=== PATIENT | female | born 1975 ===

== ENCOUNTER 2022-04-02 23:39 | Outpatient (CLI) | payer MEDICAID ==
[2022-04-03 03:10] LABS: Bilirubin,Urine NEG (Negative); Blood,Urine NEG (Negative); Color,Urine Yellow (Yellow); Urobilinogen,Urine < 2.0 mg/dL (<2.0)
[2022-04-03 04:09] LABS: Bacteria,Urine 4+ /HPF (Negative); Calcium Oxalate Crystals,Urine 2+; Mucus,Urine 3+ /HPF
[2022-04-03] MEDS ORDERED: LACTATED RINGERS 1,000 ML IV ONE (05:05)
[2022-04-03] MEDS ORDERED: ACETAMINOPHEN 500 MG TAB PO ONE (05:06)
[2022-04-03] MEDS ORDERED: guaiFENesin 200 MG TAB PO ONE (05:47)
[2022-04-03 07:09] VITALS: BP 115/66
== END 2022-04-03 08:02 | disposition home or self-care (01) ==
LOC: TRG 23:39 → APU 23:41 → TRG 04-03 08:02
PROVIDERS: ATTEND Obstetrics & Gynecology
DX: O62.9 Abnormality of forces of labor, unspecified (principal); O09.523 Supervision of elderly multigravida, third trimester; Z3A.35 35 weeks gestation of pregnancy
CPT/HCPCS: 59025; 81001; 87116; 87430; 87502; 96360; J7120

== ENCOUNTER 2022-04-21 16:36 | Inpatient (IN) | payer MEDICAID ==
[2022-04-21] MEDS ORDERED: LACTATED RINGERS 1,000 ML ONE (17:00)
[2022-04-21] MEDS ORDERED: MAGNESIUM SULFATE 40GM/1000ML 40 GM/1,000 ML BAG IV ONE (17:09)
[2022-04-21] MEDS ORDERED: MAGNESIUM SULFATE 4 GM/100 ML BAG IV ONE ×3 (17:09→21:00)
[2022-04-21] MEDS ORDERED: hydrALAZINE 20 MG/1 ML INJ ONE (17:12)
[2022-04-21] MEDS ORDERED: LORazepam 2 MG/ML VIAL ONE (17:20)
[2022-04-21] MEDS ORDERED: propofoL 200 MG/20 ML VIAL IV ONE (17:20)
[2022-04-21] MEDS ORDERED: SODIUM CHLORIDE 0.9% 500 ML 500 ML IV SCH (17:20)
[2022-04-21] MEDS ORDERED: SUCCINYLCHOLINE CHLORIDE 200 MG/10 ML INJ MDV ONE (17:20)
[2022-04-21] MEDS ORDERED: LORazepam 2 MG/ML VIAL IV ONE (17:23)
[2022-04-21] MEDS ORDERED: METOCLOPRAMIDE 10 MG/2 ML INJ IV ONE (17:25)
[2022-04-21] MEDS ORDERED: FAMOTIDINE 20 MG/2 ML INJ IV ONE (17:25)
[2022-04-21] MEDS ORDERED: fentaNYL 100 MCG/2 ML INJ ONE ×2 (17:25→19:15)
[2022-04-21] MEDS ORDERED: ceFAZolin/Water 2 GM/20 ML 2 GM/20 ML SYRINGE IV ONE (17:28)
[2022-04-21] MEDS ORDERED: LACTATED RINGERS 1,000 ML IV SCH ×3 (17:30→20:30)
[2022-04-21] MEDS ORDERED: GENTAMICIN 120 MG in SODIUM CHLORIDE 0.9% 100 ML IV ONE (17:35)
[2022-04-21] MEDS ORDERED: GENTAMICIN/NS 80 MG/100 ML 100 ML IV ONE ×2 (17:39→19:00)
[2022-04-21] MEDS ORDERED: WATER FOR IRRIG STERILE 1,500 ML BOTTLE IR ONE (17:40)
[2022-04-21] MEDS ORDERED: SODIUM CHLORIDE 0.9% IRR 1,500 ML BOTTLE IR ONE (17:40)
--- NOTE | 2022-04-21 17:44 | Anesthesia Consultation ---
Anesthesia Consult and Med Hx Date of service: 04/21/22 - Airway Anesthetic Teeth Evaluation: Good ROM Head & Neck: Adequate Mental/Hyoid Distance: Adequate Mallampati Class: Class III Intubation Access Assessment: Possibly Difficult - Pre-Operative Health Status ASA Pre-Surgery Classification: ASA3, Emergency Proposed Anesthetic Plan: General - Cardiovascular System Hx Hypertension: Yes (pre-e) - Additional Comments Anesthesia Medical History Comments: Per RN report, PMH ~36w IUP presenting with abdominal pain and HTN. She was started on treatment for pre-eclampsia then became unresponsive with questionable seizure activity. Code met was called. On my arrival, patient was initially unresponsive, SBP 180s, HR 60s, SpO2 100% on NRB and FHTs 130s. She was given hydralazine and ativan IV per OB order and regained consciousness. Bedside US did not show abruption. Patient now scheduled for STAT . Labs drawn on admission are pending. pRBCs ordered. Plan for GETA/RSI. No written anesthesia consent was obtained given emergent circumstances however OB did explain to patient in her primary language Micronesian that she would be put to sleep for her .
--- NOTE | 2022-04-21 17:44 | Anesthesia Day of Surgery ---
Anesthesia Day of Surgery - Day of Surgery Patient Examined: Yes Patient H&P Reviewed: Yes Patient is NPO: No (unknown; will be RSI/GETA)
[2022-04-21] MEDS ORDERED: GENTAMICIN/NS 120MG/100ML 120 MG/100 ML BAG IV ONE (17:45)
[2022-04-21 17:46] LABS: Basophils % (Auto) 0.5 % (0.0-1.8); Eosinophils # (Auto) 0.2 K/mm3 (0.0-0.4); Eosinophils % (Auto) 1.9 % (0.0-4.3); Hematocrit 43.8 % (30.3-42.9); Hemoglobin 15.1 gm/dl (10.1-14.3); Lymphocytes # (Auto) 3.2 K/mm3 (1.2-5.4); Lymphocytes % (Auto) 31.7 % (13.4-35.0); Mean Corpuscular HGB Conc 34 % (30-34); Mean Corpuscular Volume 92 fl (79-97); Monocytes # (Auto) 0.9 K/mm3 (0.0-0.8); Monocytes % (Auto) 8.5 % (0.0-7.3); Platelet Count 173 K/mm3 (140-440); Red Blood Count 4.76 M/mm3 (3.65-5.03); Red Cell Distribution Width 13.8 % (13.2-15.2)
--- NOTE | 2022-04-21 17:49 | Ultrasound Report ---
US OB limited INDICATION: PT BECAME UNRESPONSIVE; STAT U/S FOR PLACENTAL ABRUPTION. COMPARISON: None available. FINDINGS: Limited OB ultrasound shows single gestation in the cephalic position with heart rate of 127 bp m. Placenta is anterior and right lateral. There is no lifting or separation of the placenta. Signer Name: Carlyle Chávez MD Signed: 04/21/2022 5:44 PM Workstation Name: [id number]
[2022-04-21 18:00] LABS: Alanine Aminotransferase 113 units/L (7-56); Albumin 3.5 g/dL (3.9-5); BUN/Creatinine Ratio 19; Blood Urea Nitrogen 15 mg/dL (7-17); Calcium 9.3 mg/dL (8.4-10.2); Hemolysis Index 7
[2022-04-21] MEDS ORDERED: OXYTOCIN DRIP 30 UNITS/500 ML BAG IV SCH ×3 (18:00→21:00)
[2022-04-21] MEDS ORDERED: BICITRA ORAL LIQD 30ML PO ONE (18:00)
[2022-04-21] MEDS ORDERED: ceFAZolin/Water 2 GM/20 ML 2 GM/20 ML SYRINGE IV SCH (18:00)
[2022-04-21 18:01] LABS: Alanine Aminotransferase 114 units/L (7-56)
[2022-04-21] MEDS ORDERED: OXYTOCIN 10 UNIT/1 ML INJ ONE ×2 (18:07→18:08)
[2022-04-21 18:13] LABS: Bilirubin,Urine NEG (Negative); Blood,Urine SM (Negative); Color,Urine Yellow (Yellow); Urobilinogen,Urine < 2.0 mg/dL (<2.0)
[2022-04-21 18:20] LABS: Bacteria,Urine 2+ /HPF (Negative); Hyaline Casts,Urine 2 /LPF; Mucus,Urine FEW /HPF
[2022-04-21] MEDS ORDERED: ROCURONIUM 50 MG/5 ML INJ IV ONE (18:21)
[2022-04-21 18:24] LABS: Protein,Urine >500 mg/dL (Negative)
[2022-04-21] MEDS ORDERED: GLYCOPYRROLATE 0.4 MG/2 ML INJ ONE (18:29)
[2022-04-21] MEDS ORDERED: NEOSTIGMINE 10MG/10 ML INJ MDV ONE (18:29)
[2022-04-21 18:36] LABS: INR 0.77 (0.87-1.13)
[2022-04-21 18:37] LABS: Partial Thromboplastin Time 24.1 Sec. (24.2-36.6)
[2022-04-21] MEDS ORDERED: TERBUTALINE 1 MG/1 ML INJ SUB-Q PRN (18:49)
[2022-04-21] MEDS ORDERED: CARBOPROST TROMETHAMINE 250 MCG/1 ML INJ IM PRN (18:49)
[2022-04-21] MEDS ORDERED: LOPERAMIDE 2 MG CAP PO PRN (18:49)
[2022-04-21] MEDS ORDERED: miSOPROStol 200 MCG TAB PR PRN (18:49)
[2022-04-21] MEDS ORDERED: BUTORPHANOL 2 MG/1 ML INJ IV PRN (18:49)
[2022-04-21] MEDS ORDERED: OXYTOCIN 10 UNIT/1 ML INJ IM PRN (18:49)
[2022-04-21] MEDS ORDERED: METHYLERGONOVINE MALEATE 0.2 MG/ML VIAL IM PRN (18:49)
[2022-04-21] MEDS ORDERED: ePHEDrine SULFATE 50 MG/1 ML INJ IV PRN (18:49)
[2022-04-21] MEDS ORDERED: NalbUPHINE 10 MG/1 ML INJ IV PRN (18:49)
[2022-04-21] MEDS ORDERED: MINERAL OIL 30 ML ORAL LIQD PO PRN (18:49)
[2022-04-21] MEDS ORDERED: fentaNYL 100 MCG/2 ML INJ IV PRN (18:49)
[2022-04-21] MEDS ORDERED: SUGAMMADEX SODIUM 200 MG/2 ML VIAL IV ONE (18:59)
[2022-04-21] MEDS ORDERED: HYDROmorphone 1 MG/1 ML INJ IV PRN (19:22)
[2022-04-21] MEDS ORDERED: PROMETHAZINE 25 MG RECT SUPP PR PRN (19:22)
[2022-04-21] MEDS ORDERED: NALOXONE 0.4 MG/1 ML INJ IV PRN ×2 (19:22→20:30)
[2022-04-21] MEDS ORDERED: PROMETHAZINE 25 MG TAB PO PRN (19:22)
[2022-04-21] MEDS ORDERED: ONDANSETRON 4 MG/2 ML INJ IV PRN (19:22)
[2022-04-21] MEDS ORDERED: MORPHINE 4 MG/1 ML INJ IV PRN (19:22)
[2022-04-21] MEDS: MAGNESIUM SULFATE 40GM/1000ML 40 GM/1,000 ML BAG IV SCH (19:39)
[2022-04-21] MEDS: HYDROmorphone 1 MG/1 ML INJ IV PRN ×4 (19:42→22:41)
[2022-04-21] MEDS ORDERED: LIDOCAINE (2%) 20 MG/1 ML VIAL 20 ML MDV INFILTRATI ONE (19:49)
[2022-04-21] MEDS ORDERED: fentaNYL-BUPIV 2 MCG/ML-0.125% 200 MCG/100 ML BAG EPIDURAL SCH (20:00)
--- NOTE | 2022-04-21 20:06 | History and Physical Report ---
History of Present Illness Date of examination: 04/21/22 Date of admission: 04/21/22 18:52 Chief complaint: "She just had a seizure" History of present illness: Late entry. Pt is a 46 year old female VANESSA 05/15/22 at 36w4d who presents by EMS saying she was not feeling well. She presented to [facility] clinic today with elevated blood pressure and headache today. She was instructed to present to labor and delivery for induction. However, she presented by EMS with restlessness. During her evaluation she was noted to have a seizure while she was in triage. She was placed on magnesium sulfate, and given IV hydralazine and Ativan 1 mg. She has had care at [facility] complicated by advanced maternal age, IVF with donor egg, migraines, right wrist pain, anterior placenta with lakes, grandmultiparity, h/o hemorrhage, hypothyroidism on Synthroid 50 mcg daily. Her GBS status is unknown as the study was pending this week. 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, IVF ) Family/Genetic History: hypertension, cancer (skin cancer ) - Obstetrical History Expected Date of Delivery: 05/15/22 Actual Gestation: 36 Week(s) 4 Day(s) : 6 Para: 5 Hx # Term Pregnancies: 5 Number of Pregnancies: 0 Spontaneous Abortions: 0 Induced : 0 Number of Living Children: 4 Medications and Allergies Allergies Allergy/AdvReac Type Severity Reaction Status Date / Time Penicillins Allergy Unknown Verified 04/03/22 05:08 Active Meds: Active Medications Acetaminophen (Acetaminophen 325 Mg Tab) 650 mg PO Q4H PRN PRN Reason: Pain, Mild (1-3) Carboprost Tromethamine (Carboprost Tromethamine 250 Mcg/1 Ml Inj) 250 mcg IM ONCE PRN PRN Reason: Uterine Bleeding Ephedrine Sulfate (Ephedrine Sulfate 50 Mg/1 Ml Inj) 10 mg IV Q2M PRN PRN Reason: Hypotension Hydralazine HCl (Hydralazine 20 Mg/1 Ml Inj) 5 mg IV Q30MIN PRN PRN Reason: Blood Pressure Hydromorphone HCl (Hydromorphone 1 Mg/1 Ml Inj) 0.5 mg IV Q5M PRN PRN Reason: BREAK Stop: 04/22/22 19:21 Last Admin: 04/21/22 19:42 Dose: 0.5 mg Hydromorphone HCl (Hydromorphone 1 Mg/1 Ml Inj) 0.5 mg IV Q4H PRN PRN Reason: breakthrough pain > 7/10 Sodium Chloride (Nacl 0.9% 500 Ml) 500 mls @ 0 mls/hr IV ONCE IRIS Lactated Ringer's (Lactated Ringers) 1,000 mls @ 2,250 mls/hr IV PREOP IRIS Stop: 04/22/22 17:57 Oxytocin/Sodium Chloride (Pitocin/Ns 30 Unit/500ml) 30 units in 500 mls @ 0 mls/hr IV TITR IRIS; Protocol Clindamycin HCl (Cleocin 900 Mg/50 Ml) 900 mg in 50 mls @ 100 mls/hr IV PREOP IRIS; Protocol Last Admin: 04/21/22 17:47 Dose: 100 mls/hr Magnesium Sulfate (Magnesium Sulfate 4gm/100ml) 4 gm in 100 mls @ 25 mls/hr IV ONCE ONE Stop: 04/21/22 22:59 Last Admin: 04/21/22 17:13 Dose: 25 mls/hr Magnesium Sulfate (Magnesium Sulfate 40gm/1000ml) 40 gm in 1,000 mls @ 50 mls/hr IV DIRECT IRIS Last Admin: 04/21/22 19:39 Dose: 2 gm/hr, 50 mls/hr Oxytocin/Sodium Chloride (Pitocin/Ns 30 Unit/500ml) 30 units in 500 mls @ 2 mls/hr IV TITR IRIS; Protocol Lactated Ringer's (Lactated Ringers) 1,000 mls @ 125 mls/hr IV DIRECT IRIS Fentanyl/Bupivacaine/Sodium Chlor (Fentanyl-Bupiv 2 Mcg/Ml-0.125%) 200 mcg in 100 mls @ 8 mls/hr EPIDURAL TITRATE IRIS; Protocol Lidocaine (Lidocaine (2%) 20 Mg/1 Ml Vial 20 Ml Mdv) 20 ml INFILTRATI ONCE ONE Stop: 04/21/22 19:50 Loperamide HCl (Loperamide 2 Mg Cap) 2 mg PO ONCE PRN PRN Reason: give with Hemabate Methylergonovine Maleate (Methylergonovine Maleate 0.2 Mg/Ml Vial) 0.2 mg IM ON CE PRN PRN Reason: Uterine Bleeding Mineral Oil (Mineral Oil 30 Ml Oral Liqd) 30 ml PO QHS PRN PRN Reason: Constipation Misoprostol (Misoprostol 200 Mcg Tab) 800 mcg NH ONCE PRN PRN Reason: Uterine Bleeding Morphine Sulfate (Morphine 4 Mg/1 Ml Inj) 2.5 mg IV Q15M PRN PRN Reason: BREAK Stop: 04/22/22 19:21 Naloxone HCl (Naloxone 0.4 Mg/1 Ml Inj) 0.2 mg IV Q2MIN PRN PRN Reason: Res Rate </= 8 or 02 SAT < 92% Ondansetron HCl (Ondansetron 4 Mg/2 Ml Inj) 4 mg IV Q8H PRN PRN Reason: Nausea And Vomiting Oxytocin (Oxytocin 10 Unit/1 Ml Inj) 10 unit IM ONCE PRN PRN Reason: Uterine Bleeding Promethazine HCl (Promethazine 25 Mg Tab) 25 mg PO Q6H PRN PRN Reason: Nausea And Vomiting Promethazine HCl (Promethazine 25 Mg Rect Supp) 25 mg NH Q6H PRN PRN Reason: Nausea And Vomiting Sodium Chloride (Sodium Chloride 0.9% 10 Ml Flush Syringe) 10 ml IV PRN NR Terbutaline Sulfate (Terbutaline 1 Mg/1 Ml Inj) 0.25 mg SUB-Q ONCE PRN PRN Reason: Hyperstimulation/Hypertonicity Review of Systems All systems: negative - Vital Signs Vital signs: Vital Signs Pulse BP Pulse Ox 68 137/98 79 L 04/21/22 17:01 04/21/22 17:01 04/21/22 17:01 Temp Pulse Resp BP Pulse Ox 82 163/78 98 04/21/22 17:35 04/21/22 17:35 04/21/22 17:31 - Physical Exam Breasts: Positive: deferred Abdomen: Positive: soft (obese, gravid ) Uterus: Positive: enlarged (gravid ) Extremities: Positive: normal - Obstetrical FHR: auscultation normal Uterine Contraction Monitor Mode: External Cervical Dilatation: 1 Uterine Contraction Pattern: Absent Uterine Tone Measurement Phase: Resting Results Result Diagrams: 04/21/22 Unknown 04/21/22 Unknown Abnormal lab results 04/21/22 04/21/22 04/21/22 Range/Units 17:36 Unknown Unknown Hgb 15.1 H (10.1-14.3) gm/dl Hct 43.8 H (30.3-42.9) % Hall % (Auto) 8.5 H (0.0-7.3) % Hall # (Auto) 0.9 H (0.0-0.8) K/mm3 PT (12.2-14.9) Sec. INR (0.87-1.13) APTT (24.2-36.6) Sec. AST 132 H (5-40) units/L ALT 114 H (7-56) units/L Alkaline Phosphatase (35-129) units/L Lactate Dehydrogenase 368 H (91-180) units/L Total Protein (6.3-8.2) g/dL Albumin (3.9-5) g/dL Urine WBC (Auto) 18.0 H (0.0-6.0) /HPF Crossmatch 04/21/22 04/21/22 04/21/22 Range/Units Unknown Unknown Unknown Hgb (10.1-14.3) gm/dl Hct (30.3-42.9) % Hall % (Auto) (0.0-7.3) % Hall # (Auto) (0.0-0.8) K/mm3 PT 11.6 L (12.2-14.9) Sec. INR 0.77 L (0.87-1.13) APTT 24.1 L (24.2-36.6) Sec. AST 127 H (5-40) units/L ALT 113 H (7-56) units/L Alkaline Phosphatase 153 H (35-129) units/L Lactate Dehydrogenase (91-180) units/L Total Protein 6.0 L (6.3-8.2) g/dL Albumin 3.5 L (3.9-5) g/dL Urine WBC (Auto) (0.0-6.0) /HPF Crossmatch See Detail All other labs normal. Assessment and Plan A: IUP at 36w4d Eclampsia Advanced Maternal Age IVF with donor egg Migraines Anterior placenta with lakes Grandmultiparity h/o hemorrhage Hypothyroidism on Synthroid 50 mcg daily. GBS status pending P: Proceed with emergent section Anesthesia and NICU aware
--- NOTE | 2022-04-21 20:13 | Procedure Note ---
OB Delivery Note - Delivery Date of Delivery: 04/21/22 Surgeon: BRANDON VIRGEN Estimated blood loss: other (827 mL) - Section Preop diagnosis: other (Eclampsia ) Postop diagnosis: same section procedure: section, primary low transverse Disposition: PACU Narrative: Please see operative report - Infant A at 1 minute: 7 at 5 minutes: 8 Infant Gender: Male (2270g (5lb 0oz) @ 1758 pm)
[2022-04-21] MEDS: hydrALAZINE 20 MG/1 ML INJ IV PRN ×2 (20:26→20:57)
[2022-04-21] MEDS ORDERED: LANOLIN/ZINC/DIMETHICONE (LANSINOH) 7 GM TP PRN (20:30)
[2022-04-21] MEDS ORDERED: WITCH HAZEL/ GLYCERIN PAD TP PRN (20:30)
--- NOTE | 2022-04-21 20:30 | Operative Report ---
Operative Report Operative Report: Date of procedure: April 21, 2022 Preoperative diagnosis: 1) IUP at 36w4d 2) Eclampsia 3) Advanced Maternal Age 4) Obesity 5) IVF Postoperative diagnosis: Same Procedure: Primary low transverse section Surgeon: Mariam Ibarra M.D. Assist: Lita Lord M.D. Anesthesia: GETA Findings: 1) Viable male , Apgars 7 and 8, weight 2270 g, (5 lb 0 oz) in cephalic presentation. Nuchal cord x 2 2) Normal-appearing uterus ovaries and tubes Estimated blood loss: 827 mL IV fluids: 1400 mL Urine output: 450 mL, clear at the end of the procedure Drains: Valle to gravity Specimens: Placenta to pathology Complications:None. Counts correct x 3 Disposition: Stable to PACU Indication for procedure: Pt is a 46 year old at 36w4d presents with suspected seizure activity and elevated blood pressures consistent with eclampsia. The decision was made to proceed to section. Operation in detail: After the risks, benefits, alternatives and complications were explained to the patient she gave informed consent for the procedure. She was subsequently taken to the operating room where regional anesthesia was noted to be adequate. She was placed in the dorsal supine position with leftward tilt and prepped and draped in a normal sterile fashion. heart tones were noted prior to incision. A timeout was performed. A Pfannenstiel skin incision was made with the knife and carried down to the layer of the fascia with the Bovie. The fascia was incised in the midline and the fascial incision was extended bilaterally with the knife. The fascial incision was then stretched. The rectus muscles were then in the midline . The peritoneum was then entered bluntly. The peritoneal incision was extended with good visualization of the bladder. The peritoneal incision was then stretched. The bladder blade was then placed. The vesicouterine peritoneum was grasped with smooth pick ups and incised with Metzenbaum scissors. A bladder flap was then created digitally and the bladder blade was replaced. A transverse incision was made in the lower uterine segment with a knife and extended bilaterally with the bandage scissors. Amniotomy was performed with egress of clear fluid. head delivered with ease, nuchal cord x 2 was reduced, followed by delivery of the shoulders and body. bulb suctioned at delivery. Cord clamped and cut. handed to NICU staff in attendance. Cord blood was collected. The placenta was then delivered m anually. The uterus was then exteriorized and cleared of all clots and debris. The hysterotomy was then reapproximated with 0 Monocryl in a running locked fashion. A second layer of the same suture was used in imbricating fashion. The hysterotomy was inspected and hemostasis was noted. The gutters were irrigated and cleared of all clots and debris. The uterus was placed back into the jodie toneal cavity. The hysterotomy was again inspected and noted to be hemostatic. Surgicel was placed over the hysterotomy. The peritoneum was reapproximated with 0 Monocryl in a running fashion incorporating the rectus muscles. Surgicel was placed over the rectus muscles. The fascia was reapproximated with 0 Vicryl in a running fashion. The subcutaneous tissue was reapproximated with 3-0 Vicryl in a running fashion. The skin was reapproximated with danyel. The incision was then covered with steri strips and a pressure dressing. The procedure was then ended. The patient tolerated the procedure well and was taken to the PACU in stable condition. All instrument, lap, and needle counts were correct 3.
[2022-04-21] MEDS ORDERED: hydrALAZINE 20 MG/1 ML INJ IV ONE (21:05)
[2022-04-21] MEDS ORDERED: HYDROmorphone 0.5 MG/0.5 ML INJ ONE ×2 (21:22→22:40)
[2022-04-21] MEDS ORDERED: D5W/LACTATED RINGERS 1,000 ML IV SCH (22:00)
[2022-04-21] MEDS ORDERED: MAGNESIUM SULFATE 40GM/1000ML 40 GM/1,000 ML BAG IV SCH (22:00)
[2022-04-21] MEDS: NIFEdipine XL 30 MG TAB PO SCH (22:35)
[2022-04-21 23:35] LABS: Hematocrit 41.9 % (30.3-42.9); Hemoglobin 13.8 gm/dl (10.1-14.3); Mean Corpuscular HGB Conc 33 % (30-34); Mean Corpuscular Volume 93 fl (79-97); Platelet Count 141 K/mm3 (140-440); Red Blood Count 4.52 M/mm3 (3.65-5.03)
[2022-04-21 23:41] LABS: INR 0.83 (0.87-1.13)
[2022-04-21 23:42] LABS: Partial Thromboplastin Time 25.8 Sec. (24.2-36.6)
[2022-04-21 23:44] LABS: Alanine Aminotransferase 177 units/L (7-56)
[2022-04-22] MEDS: oxyCODONE /ACETAMINOPHEN 5-325MG TAB PO PRN (00:43)
[2022-04-22 01:44] LABS: Uric Acid 7.4 mg/dL (3.5-7.6)
[2022-04-22] MEDS: CLINDAMYCIN 600 MG/50 mL 600 MG/50 ML BAG IV SCH ×2 (02:44→10:35)
[2022-04-22] MEDS: hydrALAZINE 20 MG/1 ML INJ IV PRN (05:38)
[2022-04-22] MEDS ORDERED: TETANUS,DIPH,PERTUSS(ACELL) VACCINE 0.5 ML SYRINGE IM ONE (06:00)
[2022-04-22] MEDS: HYDROmorphone 1 MG/1 ML INJ IV PRN ×2 (06:24→08:51)
[2022-04-22] MEDS ORDERED: KETOROLAC 30 MG/1 ML INJ IV SCH (07:30)
--- NOTE | 2022-04-22 08:01 | Progress Note ---
Assessment and Plan A: POD#1 s/p primary section at 36 wks Eclampsia on magnesium sulfate for seizure prophylaxis, Procardia XL 30 mg BID Advanced Maternal Age IVF with donor egg Migraines Anterior placenta with lakes Grandmultiparity h/o hemorrhage Hypothyroidism on Synthroid 50 mcg daily. GBS status pending P: Continue magnesium sulfate for at least 24 hours Titrate antihypertensives Optimize pain regimen Closely monitor status Subjective - Subjective Date of service: 04/22/22 Principal diagnosis: Eclampsia, s/p primary under general anesthesia Interval history: Pt required multiple pushes of hydralazine. Patient reports: appetite normal, pain poorly controlled, no voiding normally (jane in place ), no flatus, no bowel movement : in NICU Objective - Vital Signs Latest vital signs: Vital Signs Temp Pulse Resp BP BP Pulse Ox Pulse Ox 04/22/22 07:59 95 H 141/65 93 04/22/22 07:56 103 H 96 04/22/22 07:51 107 H 97 04/22/22 07:50 101 H 94 04/22/22 07:46 102 H 96 04/22/22 07:44 100 H 144/60 92 04/22/22 07:41 103 H 96 04/22/22 07:40 96 04/22/22 07:36 97.8 F 100 H 20 95 04/22/22 07:31 101 H 96 04/22/22 07:29 100 H 155/71 94 04/22/22 07:26 102 H 97 04/22/22 07:21 105 H 97 04/22/22 07:16 104 H 96 04/22/22 07:14 99 H 154/70 04/22/22 07:11 102 H 96 04/22/22 07:06 103 H 97 04/22/22 07:01 101 H 96 04/22/22 06:59 99 H 149/69 94 04/22/22 06:56 103 H 97 04/22/22 06:51 103 H 96 04/22/22 06:46 105 H 96 04/22/22 06:44 103 H 148/68 04/22/22 06:41 104 H 94 04/22/22 06:39 105 H 94 04/22/22 06:36 104 H 94 04/22/22 06:31 106 H 94 06/23/22 06:29 100 H 157/72 94 04/22/22 06:26 101 H 96 06 06:21 100 H 95 04/22/22 06:16 103 H 95 04/22/22 06:14 102 H 156/73 93 04/22/22 06:11 101 H 96 06 06:06 98 H 96 04/22/22 06:01 102 H 96 04/22/22 05:59 103 H 153/72 94 04/22/22 05:56 101 H 96 04/22/22 05:51 97 H 97 04/22/22 05:46 99 H 97 04/22/22 05:44 96 H 157/74 04/22/22 05:41 99 H 98 04/22/22 05:36 99 H 97 04/22/22 05:31 99 H 97 04/22/22 05:26 101 H 97 04/22/22 05:24 99 H 186/79 04/22/22 05:21 100 H 98 04/22/22 05:16 98 H 97 04/22/22 05:11 98 H 97 04/22/22 05:06 100 H 96 04/22/22 05:04 97 H 175/82 04/22/22 05:03 100 H 94 04/22/22 05:01 102 H 96 04/22/22 04:56 102 H 97 04/22/22 04:51 102 H 97 04/22/22 04:46 103 H 96 04/22/22 04:44 100 H 167/74 04/22/22 04:43 102 H 94 04/22/22 04:41 103 H 96 04/22/22 04:36 103 H 96 04/22/22 04:31 100 H 97 04/22/22 04:26 102 H 97 04/22/22 04:24 102 H 165/72 04/22/22 04:23 103 H 94 04/22/22 04:21 103 H 97 04/22/22 04:16 104 H 97 04/22/22 04:11 105 H 97 04/22/22 04:06 106 H 96 04/22/22 04:03 102 H 141/65 92 04/22/22 04:01 103 H 97 04/22/22 03:56 105 H 97 04/22/22 03:51 103 H 96 04/22/22 03:46 104 H 96 06 03:43 103 H 140/65 93 06 03:41 105 H 96 04/22/22 03:36 104 H 96 04/22/22 03:31 105 H 96 04/22/22 03:26 106 H 96 04/22/22 03:23 102 H 149/68 92 04/22/22 03:21 105 H 96 04/22/22 03:16 106 H 97 04/22/22 03:11 105 H 96 04/22/22 03:06 104 H 97 04/22/22 03:03 100 H 150/70 93 04/22/22 03:01 105 H 97 04/22/22 02:56 106 H 97 04/22/22 02:51 102 H 97 04/22/22 02:46 105 H 97 04/22/22 02:43 104 H 143/70 93 04/22/22 02:41 111 H 97 04/22/22 02:36 102 H 97 04/22/22 02:31 104 H 96 04/22/22 02:26 109 H 96 04/22/22 02:23 103 H 143/67 93 04/22/22 02:21 104 H 96 04/22/22 02:16 106 H 96 04/22/22 02:11 102 H 96 04/22/22 02:06 105 H 96 04/22/22 02:03 105 H 142/65 92 04/22/22 02:01 104 H 96 04/22/22 01:56 111 H 97 04/22/22 01:51 107 H 96 04/22/22 01:46 108 H 96 04/22/22 01:43 102 H 147/69 92 04/22/22 01:41 108 H 96 04/22/22 01:36 108 H 96 04/22/22 01:31 103 H 97 04/22/22 01:26 105 H 97 04/22/22 01:23 101 H 144/67 94 04/22/22 01:21 103 H 97 04/22/22 01:16 101 H 97 04/22/22 01:11 102 H 98 04/22/22 01:06 104 H 98 04/22/22 01:02 98 H 154/67 04/22/22 01:01 102 H 97 04/22/22 00:56 104 H 97 04/22/22 00:52 99 H 161/71 04/22/22 00:51 101 H 97 04/22/22 00:46 105 H 98 04/22/22 00:42 98 H 163/71 94 04/22/22 00:41 104 H 97 04/22/22 00:36 101 H 97 04/22/22 00:33 98 H 161/71 04/22/22 00:31 102 H 97 04/22/22 00:26 107 H 98 04/22/22 00:22 103 H 148/65 04/22/22 00:21 105 H 97 04/22/22 00:16 103 H 97 04/22/22 00:12 103 H 158/68 04/22/22 00:11 103 H 97 04/22/22 00:06 103 H 96 04/22/22 00:02 103 H 159/71 04/22/22 00:01 105 H 98 04/21/22 23:56 109 H 97 04/21/22 23:52 106 H 157/71 04/21/22 23:51 107 H 96 04/21/22 23:46 109 H 97 04/21/22 23:42 108 H 160/72 04/21/22 23:41 107 H 97 04/21/22 23:36 113 H 97 04/21/22 23:32 115 H 161/73 04/21/22 23:31 116 H 97 04/21/22 23:26 114 H 97 04/21/22 23:22 116 H 155/72 04/21/22 23:21 115 H 97 04/21/22 23:16 117 H 96 04/21/22 23:12 115 H 157/72 04/21/22 23:11 119 H 97 04/21/22 23:06 119 H 97 04/21/22 23:02 114 H 145/69 94 04/21/22 23:01 112 H 97 04/21/22 22:56 118 H 95 04/21/22 22:51 113 H 96 04/21/22 22:46 111 H 96 04/21/22 22:42 115 H 152/70 04/21/22 22:41 117 H 97 04/21/22 22:36 114 H 97 04/21/22 22:32 115 H 157/72 04/21/22 22:31 114 H 97 04/21/22 22:26 114 H 97 04/21/22 21:28 157/85 04/21/22 20:50 97.5 F L 04/21/22 20:25 97 H 16 170/95 100 04/21/22 20:10 97.5 F L 04/21/22 20:05 97 H 18 164/86 100 04/21/22 19:50 99 H 17 149/81 04/21/22 19:45 100 H 17 152/82 04/21/22 19:40 99 H 18 134/83 04/21/22 19:35 101 H 18 135/77 04/21/22 19:30 104 H 18 140/75 04/21/22 19:18 95.9 F L 04/21/22 17:35 82 163/78 04/21/22 17:32 90 168/81 04/21/22 17:31 88 98 04/21/22 17:29 78 159/74 04/21/22 17:26 76 157/73 100 04/21/22 17:21 72 100 04/21/22 17:19 71 185/86 04/21/22 17:18 66 192/91 04/21/22 17:16 67 99 04/21/22 17:14 63 175/87 04/21/22 17:11 64 153/108 100 04/21/22 17:06 63 100 04/21/22 17:01 67 137/98 98 Intake and Output 04/21/22 04/22/22 04/22/22 22:59 06:59 14:59 Intake Total 1500 Output Total 1150 1000 350 Balance 350 -1000 -350 Intake: IV 1500 Output: Urine 1150 1000 350 Indwelling Catheter 700 1000 350 Other: Total, Output Amount 700 1000 350 # Voids Indwelling Catheter 1 1 Weight 99.79 kg Estimated Blood Loss 827 - Exam Breasts: Present: deferred Abdomen: Present: soft, distention (moderate, obese ) Extremities: Present: edema (1+) Incision: Present: dressed - Labs Labs: Abnormal lab results 04/21/22 04/21/22 04/21/22 Range/Units 17:36 22:30 22:30 WBC 12.6 H (4.5-11.0) K/mm3 Hgb (10.1-14.3) gm/dl Hct (30.3-42.9) % Garza % (Auto) (0.0-7.3) % Garza # (Auto) (0.0-0.8) K/mm3 PT (12.2-14.9) Sec. INR (0.87-1.13) APTT (24.2-36.6) Sec. Magnesium (1.7-2.3) mg/dL AST 281 H (5-40) units/L ALT 177 H (7-56) units/L Alkaline Phosphatase (35-129) units/L Lactate Dehydrogenase 458 H (91-180) units/L Total Protein (6.3-8.2) g/dL Albumin (3.9-5) g/dL Urine WBC (Auto) 18.0 H (0.0-6.0) /HPF Crossmatch 04/21/22 04/21/22 04/21/22 Range/Units 22:30 22:30 Unknown WBC (4.5-11.0) K/mm3 Hgb 15.1 H (10.1-14.3) gm/dl Hct 43.8 H (30.3-42.9) % Garza % (Auto) 8.5 H (0.0-7.3) % Garza # (Auto) 0.9 H (0.0-0.8) K/mm3 PT (12.2-14.9) Sec. INR 0.83 L (0.87-1.13) APTT (24.2-36.6) Sec. Magnesium 5.60 H (1.7-2.3) mg/dL AST (5-40) units/L ALT (7-56) units/L Alkaline Phosphatase (35-129) units/L Lactate Dehydrogenase (91-180) units/L Total Protein (6.3-8.2) g/dL Albumin (3.9-5) g/dL Urine WBC (Auto) (0.0-6.0) /HPF Crossmatch 04/21/22 04/21/22 04/21/22 Range/Units Unknown Unknown Unknown WBC (4.5-11.0) K/mm3 Hgb (10.1-14.3) gm/dl Hct (30.3-42.9) % Garza % (Auto) (0.0-7.3) % Garza # (Auto) (0.0-0.8) K/mm3 PT 11.6 L (12.2-14.9) Sec. INR 0.77 L (0.87-1.13) APTT 24.1 L (24.2-36.6) Sec. Magnesium (1.7-2.3) mg/dL AST 132 H 127 H (5-40) units/L ALT 114 H 113 H (7-56) units/L Alkaline Phosphatase 153 H (35-129) units/L Lactate Dehydrogenase 368 H (91-180) units/L Total Protein 6.0 L (6.3-8.2) g/dL Albumin 3.5 L (3.9-5) g/dL Urine WBC (Auto) (0.0-6.0) /HPF Crossmatch 04/21/22 Range/Units Unknown WBC (4.5-11.0) K/mm3 Hgb (10.1-14.3) gm/dl Hct (30.3-42.9) % Garza % (Auto) (0.0-7.3) % Garza # (Auto) (0.0-0.8) K/mm3 PT (12.2-14.9) Sec. INR (0.87-1.13) APTT (24.2-36.6) Sec. Magnesium (1.7-2.3) mg/dL AST (5-40) units/L ALT (7-56) units/L Alkaline Phosphatase (35-129) units/L Lactate Dehydrogenase (91-180) units/L Total Protein (6.3-8.2) g/dL Albumin (3.9-5) g/dL Urine WBC (Auto) (0.0-6.0) /HPF Crossmatch See Detail
--- NOTE | 2022-04-22 08:26 | Post Anesthesia Evaluation ---
<ED SOTO - Last Filed: 04/22/22 08:25> - Post Anesthesia Evaluation Patient Participated: Yes Airway Patent: Yes Stable Respiratory Function: Yes Nausea/Vomiting: No Temp > 96.8F: Yes Pain Manageable: Yes Adequeate Hydration: Yes Anesthesia Complications: No Block Receding Appropriately: Not Applicable Patient on Ventilator: No <BUSHRA LERNER - Last Filed: 04/23/22 13:29> - Post Anesthesia Evaluation Other Comments: Co-signed for chart completion.
[2022-04-22] MEDS: LEVOTHYROXINE 50 MCG TAB PO SCH (09:15)
[2022-04-22 09:28] LABS: Hematocrit 36.5 % (30.3-42.9); Hemoglobin 12.5 gm/dl (10.1-14.3)
[2022-04-22] MEDS: SIMETHICONE 80 MG CHEW TAB PO PRN ×2 (10:28→17:12)
[2022-04-22] MEDS: NIFEdipine XL 30 MG TAB PO SCH ×2 (10:36→22:44)
[2022-04-22] MEDS: DOCUSATE SODIUM 100 MG CAP PO SCH ×2 (10:36→22:44)
[2022-04-22 14:57] LABS: Alanine Aminotransferase 117 units/L (7-56)
[2022-04-22] MEDS: MAGNESIUM SULFATE 40GM/1000ML 40 GM/1,000 ML BAG IV SCH (15:12)
[2022-04-22 16:30] LABS: Hematocrit 37.3 % (30.3-42.9); Hemoglobin 12.9 gm/dl (10.1-14.3); Mean Corpuscular HGB Conc 35 % (30-34); Mean Corpuscular Volume 92 fl (79-97); Platelet Count 105 K/mm3 (140-440); Red Blood Count 4.06 M/mm3 (3.65-5.03); Red Cell Distribution Width 14.3 % (13.2-15.2)
[2022-04-22] MEDS: KETOROLAC 30 MG/1 ML INJ IV SCH ×2 (17:13→22:44)
[2022-04-22] MEDS: ACETAMINOPHEN 325 MG TAB PO PRN (17:25)
[2022-04-22] MEDS ORDERED: MEASLES, MUMPS & RUBELLA 12,500 UNIT/0.5 ML VACCINE SUB-Q ONE (20:32)
[2022-04-23] MEDS: oxyCODONE /ACETAMINOPHEN 5-325MG TAB PO PRN (01:27)
[2022-04-23] MEDS: LEVOTHYROXINE 50 MCG TAB PO SCH (05:30)
[2022-04-23] MEDS: KETOROLAC 30 MG/1 ML INJ IV SCH ×4 (05:30→22:11)
--- NOTE | 2022-04-23 08:35 | Progress Note ---
Assessment and Plan - Patient Problems (1) Eclampsia Current Visit: Yes Status: Acute Plan to address problem: The patient appears clinically stable Routine postoperative care Consider discharge home tomorrow (2) delivery delivered Current Visit: Yes Status: Acute Subjective - Subjective Date of service: 04/23/22 Principal diagnosis: Eclampsia, s/p primary under general anesthesia Interval history: The patient is postop day 2 status post a primary delivery after evidence of a eclamptic seizure. She is completed her magnesium sulfate therapy. The patient denies any additional seizure activity. She has remained normotensive. Patient reports: appetite normal, voiding normally, pain well controlled [place]: doing well Objective - Vital Signs Latest vital signs: Vital Signs Temp Pulse Resp BP BP Pulse Ox Pulse Ox 04/23/22 05:32 98.6 F 98 H 18 108/58 96 04/23/22 01:10 98.5 F 99 H 18 124/71 96 04/22/22 20:47 98.4 F 95 H 18 127/69 96 04/22/22 20:40 97 04/22/22 20:10 97 04/22/22 20:08 101 H 95 04/22/22 20:05 103 H 92 04/22/22 20:03 100 H 94 04/22/22 20:00 96 H 109/56 94 04/22/22 19:58 101 H 95 04/22/22 19:54 99 H 94 04/22/22 19:53 98 H 96 04/22/22 19:48 101 H 96 04/22/22 19:43 97 H 96 04/22/22 19:38 98 H 96 04/22/22 19:33 103 H 97 04/22/22 19:28 74 96 04/22/22 19:16 55 L 87 04/22/22 19:13 107 H 98 04/22/22 19:08 105 H 96 04/22/22 19:03 103 H 97 04/22/22 19:02 85 94 04/22/22 19:01 100 H 114/60 04/22/22 18:41 107 H 95 04/22/22 18:40 107 H 94 04/22/22 18:36 106 H 98 04/22/22 18:34 109 H 94 04/22/22 18:31 105 H 97 04/22/22 18:26 104 H 97 04/22/22 18:21 107 H 97 06/23/22 18:16 109 H 96 04/22/22 18:11 108 H 98 04/22/22 18:06 101 H 98 04/22/22 18:01 107 H 97 04/22/22 18:00 102 H 119/62 04/22/22 17:56 112 H 96 04/22/22 17:51 110 H 97 04/22/22 17:46 104 H 97 04/22/22 17:41 109 H 98 04/22/22 17:36 95 H 96 04/22/22 17:31 95 H 97 04/22/22 17:26 92 H 95 04/22/22 17:21 98 H 96 04/22/22 17:18 98.6 F 18 04/22/22 17:16 98 H 97 04/22/22 17:13 95 H 94 04/22/22 17:11 96 H 94 04/22/22 17:07 88 94 04/22/22 17:06 97 H 95 04/22/22 17:01 94 H 95 04/22/22 17:00 96 H 119/61 04/22/22 16:59 95 H 94 04/22/22 16:56 97 H 95 04/22/22 16:54 91 H 94 04/22/22 16:51 100 H 97 04/22/22 16:47 98 H 94 04/22/22 16:46 98 H 95 04/22/22 16:41 97 H 96 04/22/22 16:36 98 H 95 04/22/22 16:33 99 H 94 04/22/22 16:31 98 H 96 04/22/22 16:26 96 H 95 04/22/22 16:21 100 H 95 04/22/22 16:16 98 H 95 04/22/22 16:11 99 H 96 04/22/22 16:06 98 H 96 04/22/22 16:01 106 H 97 04/22/22 16:00 100 H 108/58 04/22/22 15:56 98 H 96 04/22/22 15:51 99 H 96 04/22/22 15:46 93 H 97 04/22/22 15:41 94 H 95 04/22/22 15:36 92 H 97 04/22/22 15:31 100 H 98 04/22/22 15:26 99 H 97 04/22/22 15:21 98 H 97 04/22/22 15:16 97 H 96 04/22/22 15:11 96 H 96 04/22/22 15:06 96 H 96 04/22/22 15:01 101 H 97 04/22/22 15:00 97 H 107/57 04/22/22 14:56 101 H 97 04/22/22 14:51 103 H 96 04/22/22 14:46 104 H 97 04/22/22 14:41 101 H 96 04/22/22 14:36 101 H 94 04/22/22 14:34 103 H 94 04/22/22 14:31 101 H 93 04/22/22 14:29 98 H 94 04/22/22 14:26 99 H 95 04/22/22 14:21 101 H 94 04/22/22 14:16 100 H 94 04/22/22 14:13 98.3 F 19 04/22/22 14:12 103 H 94 04/22/22 14:11 101 H 95 04/22/22 14:06 104 H 94 04/22/22 14:01 99 H 93 04/22/22 14:00 100 H 104/53 04/22/22 13:59 100 H 94 04/22/22 13:56 99 H 93 04/22/22 13:51 104 H 93 04/22/22 13:47 104 H 94 04/22/22 13:46 102 H 95 04/22/22 13:41 99 H 93 04/22/22 13:36 100 H 93 04/22/22 13:32 98 H 94 04/22/22 13:31 98 H 93 04/22/22 13:26 104 H 93 04/22/22 13:21 101 H 95 06 13:20 102 H 94 04/22/22 13:16 100 H 96 04/22/22 13:11 100 H 96 04/22/22 13:06 109 H 96 04/22/22 13:01 102 H 95 04/22/22 13:00 104 H 117/58 06 12:56 103 H 95 04/22/22 12:51 100 H 96 04/22/22 12:46 104 H 95 04/22/22 12:41 104 H 95 04/22/22 12:36 98 H 95 06 12:31 102 H 94 04/22/22 12:29 103 H 93 04/22/22 12:26 105 H 93 04/22/22 12:22 104 H 94 06 12:21 101 H 93 04/22/22 12:17 94 H 92 06 12:16 99 H 95 04/22/22 12:11 96 H 96 06 12:09 98 H 94 04/22/22 12:06 101 H 95 06 12:02 99 H 94 04/22/22 12:01 96 H 96 04/22/22 12:00 96 H 110/55 04/22/22 11:56 98 H 95 04/22/22 11:51 98 H 95 04/22/22 11:48 96 H 94 04/22/22 11:46 102 H 96 04/22/22 11:41 106 H 95 04/22/22 11:39 94 H 92 04/22/22 11:36 100 H 95 04/22/22 11:31 101 H 95 04/22/22 11:26 100 H 95 04/22/22 11:24 98 H 94 04/22/22 11:21 97 H 95 04/22/22 11:16 96 H 93 04/22/22 11:11 98 H 94 04/22/22 11:06 99 H 95 04/22/22 11:04 102 H 94 04/22/22 11:01 97 H 93 04/22/22 11:00 96 H 105/55 04/22/22 10:56 99 H 93 04/22/22 10:51 101 H 94 04/22/22 10:46 99 H 94 04/22/22 10:44 98.8 F 18 04/22/22 10:41 101 H 94 04/22/22 10:36 100 H 94 04/22/22 10:31 102 H 94 04/22/22 10:26 100 H 95 04/22/22 10:21 109 H 97 04/22/22 10:16 111 H 98 06 10:13 98 H 94 04/22/22 10:11 99 H 96 04/22/22 10:06 98 H 96 04/22/22 10:01 103 H 95 04/22/22 10:00 99 H 137/61 90 04/22/22 09:56 101 H 95 04/22/22 09:51 106 H 96 04/22/22 09:46 111 H 96 04/22/22 09:44 82 94 04/22/22 09:41 99 H 95 04/22/22 09:38 105 H 93 04/22/22 09:36 102 H 93 04/22/22 09:32 106 H 93 04/22/22 09:31 105 H 96 04/22/22 09:26 101 H 96 04/22/22 09:21 109 H 94 04/22/22 09:16 102 H 95 04/22/22 09:11 96 H 96 04/22/22 09:06 105 H 97 04/22/22 09:01 102 H 96 04/22/22 08:59 101 H 132/72 04/22/22 08:56 98 H 96 04/22/22 08:55 106 H 94 04/22/22 08:51 99 H 95 04/22/22 08:46 102 H 95 04/22/22 08:45 100 H 134/70 91 04/22/22 08:41 101 H 95 04/22/22 08:36 102 H 96 Intake and Output 04/22/22 04/23/22 04/23/22 22:59 06:59 14:59 Intake Total 100 600 Output Total 1000 Balance -900 600 Intake: IV 100 MAGNESIUM SULFATE 40GM/ 100 1000ML 40 gm In 1,000 ml @ 2 GM/HR 50 mls/hr IV DIRECT IRIS Rx#:[id number] Intake, Free Water 600 Output: Urine 1000 Indwelling Catheter 900 Void 100 Other: Total, Output Amount 100 # Voids Void 1 2 - Exam Incision: Present: dressed Comments: Pedal edema - Labs Labs: Abnormal lab results 04/22/22 04/22/22 04/22/22 Range/Units 08:47 14:10 14:10 MCHC (30-34) % Plt Count (140-440) K/mm3 Magnesium 5.80 H 6.50 H (1.7-2.3) mg/dL AST 104 H (5-40) units/L ALT 117 H (7-56) units/L Lactate Dehydrogenase 347 H (91-180) units/L 04/22/22 Range/Units 15:58 MCHC 35 H (30-34) % Plt Count 105 L (140-440) K/mm3 Magnesium (1.7-2.3) mg/dL AST (5-40) units/L ALT (7-56) units/L Lactate Dehydrogenase (91-180) units/L
[2022-04-23] MEDS: DOCUSATE SODIUM 100 MG CAP PO SCH ×2 (10:43→22:12)
[2022-04-23] MEDS: NIFEdipine XL 30 MG TAB PO SCH ×2 (10:43→22:12)
[2022-04-23] MEDS: ACETAMINOPHEN 325 MG TAB PO PRN (15:37)
[2022-04-24] MEDS: KETOROLAC 30 MG/1 ML INJ IV SCH ×2 (03:26→10:44)
[2022-04-24] MEDS: LEVOTHYROXINE 50 MCG TAB PO SCH (06:47)
[2022-04-24] MEDS: DOCUSATE SODIUM 100 MG CAP PO SCH (10:45)
--- NOTE | 2022-04-24 12:11 | Discharge Summary ---
Providers - Providers Date of Admission: 04/21/22 18:52 Date of discharge: 04/24/22 Attending physician: BRANDON VIRGEN 04/21/22 20:31 Consult to Film Painter [CONS] Routine Reason For Exam: Primary care physician: BRANDON VIRGEN Hospitalization Reason for admission: other (eclampsia) Delivery: Procedure: primary low transverse Episiotomy: none Laceration: none Incision: dry, intact Other procedures: none complications: none Discharge diagnosis: IUP at term delivered baby: male Hospital course: Late entry. Pt is a 46 year old female VANESSA 05/[birth year] at 36w4d who presents by EMS saying she was not feeling well. She presented to [facility] clinic today with elevated blood pressure and headache today. She was instructed to present to labor and delivery for induction. However, she presented by EMS with restlessness. During her evaluation she was noted to have a seizure while she was in triage. She was placed on magnesium sulfate, and given IV hydralazine and Ativan 1 mg. She has had care at [facility] complicated by advanced maternal age, IVF with donor egg, migraines, right wrist pain, anterior placenta with lakes, grandmultiparity, h/o hemorrhage, hypothyroidism on Synthroid 50 mcg daily. Her GBS status is unknown as the study was pending this week. Viable male delivered via primary C/S. Post- course stable, has met discharge criteria on POD#3. Condition at discharge: Stable Disposition: 01 HOME / SELF CARE / HOMELESS - Discharge Diagnoses (1) delivery delivered Status: Acute (2) Thyroid disease Status: Acute (3) History of in vitro fertilization Status: Acute Plan - Discharge Medications Prescriptions: Ibuprofen [Motrin] 800 mg PO Q8HR PRN #60 tablet PRN Reason: Pain , Severe (7-10) oxyCODONE /ACETAMINOPHEN [Percocet 5/325] 1 tab PO Q6HR PRN #30 tablet PRN Reason: Pain - Provider Discharge Summary Activity: routine, no sex for 6 weeks, no heavy lifting 4 weeks, no strenuous exercise Diet: routine Instructions: routine Additional instructions: [] Smoking cessation referral if applicable(refer to patient education folder for contact #) [] Refer to [facility]'s [facility] Booklet Call your doctor immediately for: * Fever > 100.5 * Heavy vaginal bleeding ( >1 pad per hour) * Severe persistent headache * Shortness of breath * Reddened, hot, painful area to leg or breast * Drainage or odor from incision. * Keep incision clean and dry at all times and follow doctor's instructions regarding bathing/showering - Follow up plan Follow up: BRANDON VIRGEN MD [Primary Care Provider] - 7 Days Forms: C Discharge Summary
[2022-04-24 13:52] VITALS: BP 133/59
== END 2022-04-24 15:50 | disposition home or self-care (01) | DRG 765 ==
LOC: TRG 16:36 → APU 16:40 → LD 16:52 → APU 18:07 → TRG 19:10 → LD 23:11 → OB 04-22 20:47
PROVIDERS: ADMIT Obstetrics & Gynecology; ATTEND Obstetrics & Gynecology
PROC: 10D00Z1 Extraction of Products of Conception, Low, Open Approach (ICD-10-PCS; principal; 2022-04-21)
PROC: 3E0234Z Introduction of Serum, Toxoid and Vaccine into Muscle, Percutaneous Approach (ICD-10-PCS; 2022-04-22)
DX: O15.1 Eclampsia complicating labor (principal); O99.354 Diseases of the nervous system complicating childbirth; Z3A.36 36 weeks gestation of pregnancy; Z37.0 Single live birth; Z20.822 Contact with and (suspected) exposure to COVID-19; Z23 Encounter for immunization; O99.284 Endocrine, nutritional and metabolic diseases complicating childbirth; E03.9 Hypothyroidism, unspecified; G43.909 Migraine, unspecified, not intractable, without status migrainosus; R56.9 Unspecified convulsions; O99.214 Obesity complicating childbirth; O69.81X0 Labor and delivery complicated by cord around neck, without compression, not applicable or unspecified; Z88.0 Allergy status to penicillin
CPT/HCPCS: 36415; 76815; 80053; 81001; 82565; 82962; 83615; 83735; 84450; 84460; 84550; 85014; 85018; 85025; 85027; 85384; 85610; 85730; 86850; 86900; 86901; 86920; 87086; 88307; 90715; 99211; G0378; J1815; J3490; J7502; G0463; J0330; J0360; J1170; J1885; J2060; J2405; J2590; J2704; J2710; J3010; J3475; J7120; U0003